=== PATIENT | female | born 1985 | race Caucasian/White ===

== ENCOUNTER → 2016-09-11 | Outpatient (CLI) | payer MEDICARE ==
--- NOTE | 2016-09-13 10:56 | EKG ---
[facility] [address] [place] [address] Test Date: 2016-09-11 Test Time: 08:54:14 Pat Name: SHERIN FARR Department: Room: Gender: F [employer] Insurance: Jesús Bueno : [id number] Requested By: LADONNA BERNAL Order Number: [id number] Reading MD: Interpretive Statements
== END | disposition home or self-care (01) ==
LOC: EKG 08:43
PROVIDERS: ATTEND Nurse Practitioner Family
DX: R00.2 Palpitations (principal)
CPT/HCPCS: 93225; 93226

== ENCOUNTER → 2017-06-18 | Outpatient (CLI) | payer MEDICARE, OTHER ==
--- NOTE | 2017-06-18 14:20 | KCIC ---
SCOLIOSIS 2 OR 3 VIEWS History: Scoliosis, back pain Comparison: None. Findings: 2 views of the thoracic and lumbar spine are submitted. There is mild levoscoliosis centered about T11. Estimated De [place] angle is 8 degrees utilizing the inferior endplate of T9 and the inferior endplate of L1 for evaluation. There is very mild lumbar dextroscoliosis centered about L2-3 with estimated De Santiago angle of 6 degrees utilizing the inferior endplate of L1 and the inferior endplate of L4 for evaluation. Lumbar vertebral body stature is preserved. Impression: 1. There is mild reverse S-shaped curvature of the thoracolumbar spine. Electronically signed by: Usman Ruelas MD (06/18/2017 2:17 PM) [facility]-KCIC1
== END | disposition home or self-care (01) ==
LOC: KCIC 12:25
PROVIDERS: ATTEND Nurse Practitioner Family
DX: M41.86 Other forms of scoliosis, lumbar region (principal); M41.84 Other forms of scoliosis, thoracic region
CPT/HCPCS: 72082

== ENCOUNTER → 2017-06-19 | Outpatient (CLI) | payer MEDICARE, OTHER ==
--- NOTE | 2017-06-20 09:53 | SLEEP ---
DATE OF STUDY: 06/19/2017 SLEEP STUDY REFERRING PHYSICIAN: Gisselle Costello APRN. The patient is 32 years old, who weighs 273 pounds with a BMI of 41. The patient's [place] score was 3. Sleep study was performed at [facility] to rule out JHOANA. This was a diagnostic study. During the night study, the patient spent 421 minutes in bed and slept for 374 minutes with a sleep efficiency of 89%. Sleep latency was 13 minutes with a REM latency of 171 minutes. Overall, sleep architecture showed normal stage I sleep, increased stage II sleep, normal slow wave and reduced REM sleep. During the night study, the patient had 53 obstructive apneas, 26 mixed apneas, no central apneas and no hypopneas. The patient's apnea-hypopnea index was 13 per hour, supine index 16 per hour and REM index of 36 per hour. The flow signal was somewhat suboptimal, which may have underestimated the severity of sleep apnea. Review of EKG reveals an average heart rate of 79 beats per minute. No sustained arrhythmias were observed. Review of nocturnal oximetry study revealed a mean oxygen saturation of 97%, the lowest of 90%. PLMS were seen at index of 1 per hour. Due to low AHI, the patient did not meet the split night criteria for CPAP initiation. IMPRESSION: 1. Mild sleep apnea-hypopnea syndrome with worsening during rapid eye movement sleep. 2. No clinically significant nocturnal hypoxia. 3. No clinically significant periodic limb movements during sleep. RECOMMENDATIONS: 1. The patient would benefit from treatment of sleep apnea with either oral appliance or a trial of CPAP titration. 2. If the patient undergoes CPAP titration, then she should be followed up in 4-6 weeks to assess compliance with CPAP and to document clinical improvement. 3. Avoid ENAMEL DIPPER depressants. 4. Caution regarding driving until symptoms of sleep apnea resolve with the above recommendations. HUMBERTO SOLORZANO MD DR: DAVID/brooke JOB#: [id number] / [id number] GISSELLE Reyes APRN MTDGoran
== END | disposition home or self-care (01) ==
LOC: SLPLAB 17:48
PROVIDERS: ATTEND Nurse Practitioner Family
DX: G47.33 Obstructive sleep apnea (adult) (pediatric) (principal)
CPT/HCPCS: 95810

== ENCOUNTER → 2017-11-26 | Outpatient (CLI) | payer MEDICARE, OTHER | END | disposition home or self-care (01) | LOC: KCIC 10:54 | DX: M19.071 Primary osteoarthritis, right ankle and foot (principal) | CPT/HCPCS: 73630 ==

== ENCOUNTER → 2018-09-11 | Outpatient (CLI) | payer MEDICARE ==
--- NOTE | 2018-09-11 12:56 | KCIC ---
EXAM: Lumbar spine, 3 views; sacrum and coccyx, 3 views. HISTORY: Pain. COMPARISON: None. FINDINGS: 3 views of the lumbar spine and sacrum and coccyx are obtained. There are hypoplastic T12 ribs and 5 nonrib-bearing lumbar vertebral segments. There is minimal lumbar dextrocurvature. There is no significant listhesis. There is disc space narrowing at the lumbosacral junction. The sacroiliac joints are intact. IMPRESSION: 1. Slight disc space narrowing at the lumbosacral junction. 2. No acute osseous finding. Electronically signed by: Dinora Burton MD (09/11/2018 12:53 PM) [facility]-KC[facility]1
== END | disposition home or self-care (01) ==
LOC: KCIC 10:42
PROVIDERS: ATTEND Nurse Practitioner Family
DX: M48.07 Spinal stenosis, lumbosacral region (principal)
CPT/HCPCS: 72100; 72220

== ENCOUNTER → 2018-09-20 | Outpatient (CLI) | payer MEDICARE ==
--- NOTE | 2018-09-20 12:24 | KCIC ---
MRI of the lumbar spine without contrast 09/20/2018 CLINICAL HISTORY: Low back pain which radiates down the right leg. TECHNIQUE: Unenhanced T1-weighted and T2-weighted sagittal and axial and inversion recovery sagittal images of the lumbar spine were obtained. FINDINGS: Comparison is made to radiographs lumbar spine dated 09/11/2018. Minimal S-shaped curvature of the thoracolumbar spine is seen. Degenerative signal changes and loss of height are seen involving the L5-S1 disc. Degenerative signal changes are seen within the marrow surrounding this disc. The conus medullaris is normal morphology, position, and signal characteristics. The L1-2, L2-3, L3-4 and L4-5 disc spaces are within normal limits. At the L5-S1 disc space there is a mild generalized disc bulge. Superimposed on this disc bulge is a focal central disc herniation. This measures 1.4 centimeters in AP diameter. Degenerative changes are seen involving the facet joints bilaterally. There is mild ligamentum flavum hypertrophy bilaterally. These findings when combined result in moderate to severe central spinal canal stenosis. No neural foraminal stenosis is seen. IMPRESSION: The changes of degenerative disc disease are seen involving lower lumbar spine. At the L5-S1 disc space a large focal central disc herniation is seen which results in moderate to severe central spinal canal stenosis. No neural foraminal stenosis is seen. Electronically signed by: David Gallo MD (09/20/2018 12:21 PM) [facility]-[id number]
== END | disposition home or self-care (01) ==
LOC: KCIC MRI 11:09
PROVIDERS: ATTEND Nurse Practitioner Family
DX: M51.36 Other intervertebral disc degeneration, lumbar region (principal); M51.27 Other intervertebral disc displacement, lumbosacral region; M48.07 Spinal stenosis, lumbosacral region; M47.897 Other spondylosis, lumbosacral region; R29.890 Loss of height
CPT/HCPCS: 72148